=== PATIENT | male | born 1985 | race Caucasian/White ===

== ENCOUNTER 2018-10-03 13:18 | Emergency (ER) | payer OTHER, SELFPAY ==
[2018-10-03 13:23] VITALS: BP 138/69; PULSE 93; RESP 14; TEMP 36.6; O2SAT 97
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
[2018-10-03] MEDS: Omnipaque 350 MG/ML 100 ML BTL IJ (15:16)
[2018-10-03] MEDS: Normal Saline Flush 10 ML SYR IVP (15:16)
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
[2018-10-03 15:18] LABS: Abs Immature Grans 0.04 k/cumm (0.0-0.09); Absolute Basophil Count 0.03 k/cumm (0.0-0.2); Absolute Eosinophil Count 0.03 k/cumm (0.0-0.7); Absolute Lymphocyte Count 1.27 k/cumm (1.2-3.4); Absolute Monocyte Count 0.92 k/cumm (0.11-0.7); Absolute Neutrophil Count 5.89 k/cumm (1.2-6.7); Basophils % 0.4; Eosinophils % 0.4; HCT 42.2 % (40.0-50.0); HGB 14.2 g/dL (13.5-17.5); Immature Grans % 0.5; Lymphocytes % 15.5; Mean Corp. HGB Concentration 33.6 g/dL (32.0-36.0); Mean Corpuscular Hemoglobin 29.7 pg (27.0-33.0); Mean Corpuscular Volume 88.3 fL (80-95); Mean Platelet Volume 8.9 fL (8.0-11.0); Monocytes % 11.2; Platelet Count 261 x1000/uL (130-400); RBC 4.78 m/cumm (4.50-6.00); RBC Distribution Width 12.8 % (11.8-14.1); White Blood Cell Count 8.18 k/cumm (4.4-10.8)
[2018-10-03] MEDS: oxyCODONE 5 MG TAB PO (15:24)
[2018-10-03] MEDS: Lidocaine 5% Patch 1 PATCH (15:25)
[2018-10-03 15:26] LABS: ALT 14 U/L (12-78); AST 9 U/L (15-37); Albumin 3.6 g/dL (3.4-5.0); Alkaline Phosphatase 83 U/L (46-116); Anion Gap 6.3 mmol/L (3-11); BUN 17 mg/dL (7-18); Bilirubin, Total 0.5 mg/dL (0.2-1.0); CO2 32.7 mmol/L (21.0-32.0); CREATININE 0.99 mg/dL (0.70-1.30); Calcium 9.1 mg/dL (8.5-10.1); Chloride 96 mmol/L (98-107); Glucose 83 mg/dL (70-100); Potassium 4.5 mmol/L (3.5-5.1); Sodium 135 mmol/L (136-145); Total Protein 8.7 g/dL (6.4-8.2)
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
== END 2018-10-03 16:10 | disposition home or self-care (01) ==
PROVIDERS: Emergency Provider Student in an Organized Health Care Education/Training Program
DX: S20.212A Contusion of left front wall of thorax, initial encounter (principal); V43.52XA Car driver injured in collision with other type car in traffic accident, initial encounter
CPT/HCPCS: 36415; 80053; 99285; 71260; 85025; 99284; J3490; L3650

== ENCOUNTER 2018-10-18 13:04 | Emergency (ER) | payer OTHER, SELFPAY ==
[2018-10-18] VITALS (15 sets, daily range): BP systolic 110–129; BP diastolic 64–80; PULSE 104–135; RESP 11–21; TEMP 36.6; O2SAT 98–100
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
[2018-10-18] MEDS: Normal Saline 1,000 ML 1000 ML IV (16:25)
[2018-10-18 16:34] LABS: Abs Immature Grans 0.04 k/cumm (0.0-0.09); Absolute Basophil Count 0.03 k/cumm (0.0-0.2); Absolute Eosinophil Count 0.16 k/cumm (0.0-0.7); Absolute Neutrophil Count 9.13 k/cumm (1.2-6.7); Basophils % 0.2; Eosinophils % 1.2; HCT 36.6 % (40.0-50.0); HGB 12.3 g/dL (13.5-17.5); Immature Grans % 0.3; Lymphocytes % 20.7; Mean Corp. HGB Concentration 33.6 g/dL (32.0-36.0); Mean Corpuscular Hemoglobin 29.8 pg (27.0-33.0); Mean Corpuscular Volume 88.6 fL (80-95); Mean Platelet Volume 8.5 fL (8.0-11.0); Neutrophils % 68.6; Platelet Count 461 x1000/uL (130-400); RBC 4.13 m/cumm (4.50-6.00); RBC Distribution Width 12.4 % (11.8-14.1); White Blood Cell Count 13.31 k/cumm (4.4-10.8)
[2018-10-18 16:39] LABS: Absolute Lymphocyte Count 2.76 k/cumm (1.2-3.4)
[2018-10-18 16:47] LABS: ALT 12 U/L (12-78); AST 11 U/L (15-37); Albumin 3.3 g/dL (3.4-5.0); Alkaline Phosphatase 85 U/L (46-116); Anion Gap 4.5 mmol/L (3-11); BUN 19 mg/dL (7-18); Bilirubin, Total 0.3 mg/dL (0.2-1.0); CO2 33.5 mmol/L (21.0-32.0); CREATININE 0.83 mg/dL (0.70-1.30); Calcium 9.2 mg/dL (8.5-10.1); Chloride 99 mmol/L (98-107); Glucose 88 mg/dL (70-100); Potassium 4.6 mmol/L (3.5-5.1); Sodium 137 mmol/L (136-145); Total Protein 7.9 g/dL (6.4-8.2)
[2018-10-18] MEDS: Ketorolac 30 MG/ML VIAL (16:49)
== END 2018-10-18 18:51 | disposition short-term general hospital (02) ==
PROVIDERS: Emergency Provider Student in an Organized Health Care Education/Training Program; PCP Nurse Practitioner Family
DX: J98.2 Interstitial emphysema (principal); S22.21XA Fracture of manubrium, initial encounter for closed fracture; V43.52XA Car driver injured in collision with other type car in traffic accident, initial encounter
CPT/HCPCS: 71250; 80053; 96361; 96374; 99284; 85025; J1885

== ENCOUNTER 2018-10-23 03:26 | Emergency (ER) | payer MEDICAID, SELFPAY ==
[2018-10-23] VITALS (7 sets, daily range): BP systolic 148–152; BP diastolic 88–101; PULSE 77–97; RESP 20–45; TEMP 37.3; O2SAT 97
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
[2018-10-23] MEDS: LORazepam 2 MG/ML VIAL 0.5 MG IVP (04:10)
[2018-10-23] MEDS: Ketorolac 30 MG/ML VIAL IVP (04:11)
[2018-10-23 04:13] LABS: Abs Immature Grans 0.04 k/cumm (0.0-0.09); Absolute Basophil Count 0.02 k/cumm (0.0-0.2); Absolute Eosinophil Count 0.29 k/cumm (0.0-0.7); Absolute Lymphocyte Count 1.68 k/cumm (1.2-3.4); Absolute Monocyte Count 0.57 k/cumm (0.11-0.7); Absolute Neutrophil Count 4.89 k/cumm (1.2-6.7); Basophils % 0.3; Eosinophils % 3.9; HCT 42.8 % (40.0-50.0); HGB 14.6 g/dL (13.5-17.5); Immature Grans % 0.5; Lymphocytes % 22.4; Mean Corp. HGB Concentration 34.1 g/dL (32.0-36.0); Mean Corpuscular Hemoglobin 29.5 pg (27.0-33.0); Mean Corpuscular Volume 86.5 fL (80-95); Mean Platelet Volume 7.9 fL (8.0-11.0); Monocytes % 7.6; Neutrophils % 65.3; Platelet Count 529 x1000/uL (130-400); RBC 4.95 m/cumm (4.50-6.00); RBC Distribution Width 12.6 % (11.8-14.1); White Blood Cell Count 7.49 k/cumm (4.4-10.8)
[2018-10-23] MEDS: Normal Saline Flush 10 ML SYR IVP ×2 (04:13→04:19)
[2018-10-23] MEDS: Ondansetron 4 MG/2 ML VIAL IVP (04:18)
--- NOTE | 2018-10-23 04:30 | DI.CT_ITS ---
SYMPTOM/DIAGNOSIS: PLEURITIC LT SIDED CHEST PAIN PE CHEST CTA: CT angiography was performed with multi slice acquisition and multi planar and 3D reconstruction. CT scan of the chest was performed according to the pulmonary embolus protocol. There is no evidence of a pulmonary embolus. The thoracic aorta is intact. No evidence of aneurysm or dissection. Heart size is within normal limits. No significant pericardial effusion is seen. No evidence of right ventricular dysfunction is present. No thoracic adenopathy is identified. No effusion or pneumothorax is present. There is again seen a linear infiltrate in the left lung apex which may represent scarring or atelectasis. Follow up as clinically appropriate. No acute infiltrates are seen. The tracheobronchial tree is unremarkable. No acute fracture is present. There is an open wound over the medial aspect of the left clavicle. Upper abdominal images show findings suggestive of an enlarged spleen but are otherwise unremarkable. IMPRESSION: 1. No evidence of a pulmonary embolus, thoracic aortic aneurysm or dissection. 2. Linear infiltrate in the left lung apex which appears stable dating back to the older CT scan from 10/03/18. This may represent atelectasis, scarring or pneumonia. 3. Open wound in the soft tissues overlying the medial left clavicle.
[2018-10-23 04:33] LABS: Magnesium 1.7 mg/dL (1.8-2.4)
[2018-10-23 04:34] LABS: Troponin I < 0.02 ng/mL (0.00-0.06)
[2018-10-23] MEDS: Omnipaque 350 MG/ML 100 ML BTL IJ (04:35)
[2018-10-23 04:47] LABS: PTT Activated 28.5 sec (21.0-31.4); Prothrombin Time 11.5 sec (9.3-11.0)
[2018-10-23 04:55] LABS: INR 1.1 (0.9-1.1)
[2018-10-23] MEDS: Normal Saline 1,000 ML 150 ML IV (04:59)
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
[2018-10-23] MEDS: MORPHine 10 MG/ML VIAL 4 MG IVP (05:31)
[2018-10-23 06:00] LABS: Anion Gap 11.9 mmol/L (3-11); BUN 16 mg/dL (7-18); CO2 29.1 mmol/L (21.0-32.0); CREATININE 1.06 mg/dL (0.70-1.30); Calcium 9.9 mg/dL (8.5-10.1); Chloride 97 mmol/L (98-107); Glucose 127 mg/dL (70-100); Potassium 3.5 mmol/L (3.5-5.1); Sodium 138 mmol/L (136-145)
[2018-10-23] MEDS: Lidocaine 5% Patch 1 PATCH TP (07:50)
[2018-10-23 08:01] LABS: Troponin I < 0.02 ng/mL (0.00-0.06)
== END 2018-10-23 07:52 | disposition home or self-care (01) ==
PROVIDERS: Emergency Provider Emergency Medicine; PCP Nurse Practitioner Family
DX: R07.89 Other chest pain (principal); R06.02 Shortness of breath; R11.2 Nausea with vomiting, unspecified; R45.1 Restlessness and agitation
CPT/HCPCS: 36415; 71275; 80048; 93005; 96361; 96365; 96375; 99285; 83735; 84484; 85025; 85610; 85730; 93010; J1885; J2060; J2270; J2405; J3490

== ENCOUNTER 2018-12-02 12:58 | Outpatient (CLI) | payer MEDICAID, SELFPAY ==
[2018-12-02 15:19] LABS: Abs Immature Grans 0.01 k/cumm (0.0-0.09); Absolute Basophil Count 0.04 k/cumm (0.0-0.2); Absolute Lymphocyte Count 1.56 k/cumm (1.2-3.4); Absolute Monocyte Count 0.51 k/cumm (0.11-0.7); Absolute Neutrophil Count 4.44 k/cumm (1.2-6.7); Basophils % 0.6; HCT 41.8 % (40.0-50.0); HGB 14.3 g/dL (13.5-17.5); Immature Grans % 0.1; Lymphocytes % 23.1; Mean Corp. HGB Concentration 34.2 g/dL (32.0-36.0); Mean Corpuscular Hemoglobin 30.2 pg (27.0-33.0); Mean Corpuscular Volume 88.4 fL (80-95); Mean Platelet Volume 8.9 fL (8.0-11.0); Monocytes % 7.5; Neutrophils % 65.7; Platelet Count 287 x1000/uL (130-400); RBC 4.73 m/cumm (4.50-6.00); RBC Distribution Width 13.6 % (11.8-14.1); White Blood Cell Count 6.76 k/cumm (4.4-10.8)
[2018-12-02 17:23] LABS: ALT 43 U/L (12-78); AST 26 U/L (15-37); Albumin 3.8 g/dL (3.4-5.0); Alkaline Phosphatase 100 U/L (46-116); Anion Gap 8.5 mmol/L (3-11); BUN 14 mg/dL (7-18); Bilirubin, Total 0.3 mg/dL (0.2-1.0); CO2 27.5 mmol/L (21.0-32.0); CREATININE 0.93 mg/dL (0.70-1.30); Calcium 8.6 mg/dL (8.5-10.1); Chloride 104 mmol/L (98-107); Glucose 150 mg/dL (70-100); Potassium 4.3 mmol/L (3.5-5.1); Sodium 140 mmol/L (136-145); Total Protein 7.4 g/dL (6.4-8.2)
== END 2018-12-02 13:18 ==
PROVIDERS: PCP Nurse Practitioner Family; Visit Provider Internal Medicine Infectious Disease
DX: M86.9 Osteomyelitis, unspecified (principal)
CPT/HCPCS: 36415; 80053; 85025; 86140

== ENCOUNTER 2020-03-29 10:24 | Emergency (ER) | payer MEDICAID, SELFPAY ==
[2020-03-29 10:27] VITALS: BP 121/72; PULSE 92; RESP 16; TEMP 36.6; O2SAT 97
--- NOTE | 2020-03-29 10:40 | ED.GENADUL_ITS ---
Discharge Plan Disposition Patient Disposition: HOME Condition: Stable Discharge Details Chief Complaint: Abd Prob Clinical Impression: Inguinal hernia Primary Care Provider: Juliette Olivares ED Provider: Juanpablo Lassiter Home Meds and New Rx's Prescriptions: New sulfamethoxazole-trimethoprim [Bactrim DS] 800-160 mg tablet 1 tab PO BID Qty: 14 RF: 0 Discharge Instructions Instructions: Inguinal Hernia (ED) Additional Instructions: you should be contacted to set up a time to meet with general surgery if you have severe worsening pain or persistent vomit return to the emergency department Stand Alone Forms: Work Release Medical Decision Making 34 yo male with no chronic medical problems comes in with 2 issues. The primary issues is a week or so of intermittent discomfort in the right groin and bulge that comes and goes and notices it with heavy lifting. Denies vomit and has no pain now. He does have what feels like a small reducible inguinal canal hernia on exam without tenderness, erythema or warmth and has no testicle pain or swelling, no findings to suggest strangulated or incarcerated hernia and no findings to suggest testicular torsion. Will refer to general surgery for eval and advised if worsening pain or vomit return to the emergency department. He aso has had chronic issues with sweat pimples and has what appears to be folliculitis patches on his forearms and knees. HE has papules and pustules on an erythematous base in the forearms and anterior knees, no fluctuance or drainage on exam or severe pain. Will tx with bactrim and advised to f/u with pcp if not improving in a week Differential Diagnosis Differential Diagnosis: inguinal hernia, folliculitis, strain HPI General Mode of arrival: ambulatory . Date/Time Provider Initiated Documentation: 03/29/20 10:26 . Limitations to Documentation: no limitations . Information obtained by: patient . History of Present Illness 34 year old M presents to the emergency department with the chief complaint of right groin pain, described as moderate, and it has been intermittent. No relieving factors improve symptom(s), No exacerbating factors reported . Related Data Home Medications Medication Instructions Recorded Confirmed sulfamethoxazole-trimethoprim 1 tab PO BID #14 tab 03/29/20 [Bactrim DS] Previous Rx's Medication Instructions Recorded sulfamethoxazole-trimethoprim 1 tab PO BID #14 tab 03/29/20 [Bactrim DS] Allergies Allergy/AdvReac Type Severity Reaction Status Date / Time No Known Allergies Allergy Unverified 03/29/20 10:32 General Stated Complaint: Abd Prob TRACIE: 3 Review of Systems All systems reviewed & are unremarkable except as noted in HPI and below Constitutional Constitutional: Denies chills, Denies fever(s) and Denies weakness Cardiovascular Cardiovascular: Denies chest pain and Denies dyspnea Respiratory Respiratory: Denies cough and Denies dyspnea Gastrointestinal Gastrointestinal: Denies nausea and Denies vomiting Musculoskeletal Musculoskeletal: Denies joint swelling Neurologic Neurologic: Denies weakness [facility] Medical History (Updated 03/29/20 @ 10:40 by Juanpablo Lassiter MD) Chest wall abscess (Acute) Surgical History S/P bronchoscopy (Resolved) Social History Smoking/Tobacco Use Status: Former Tobacco Use Drug use: Never Do you feel safe at home: Yes Do you feel safe in your relationship?: Yes Exam Const General: no acute distress Orientation: alert HENOR Head: normal to inspection Ears: external ears normal General nose exam: external nose normal Mouth: moist mucous membranes Eyes General: appearance normal, both eyes and all related structures Neck Neck: normal visual inspection Resp Effort & Inspection: normal respiratory effort and able to speak in complete sentences Cardio Rate: regular rate GI Inspection: no abdominal wall ecchymosis Skin General skin exam: elasticity normal Neuro General: patient alert and patient oriented x3 Extrem General: normal to inspection Psych Mental Status: mental status grossly normal Course Vital Signs Vital signs: Vital Signs Temperature 36.6 C 03/29/20 10:27 Pulse 92 H 03/29/20 10:27 Respiratory Rate 16 03/29/20 10:27 Blood Pressure 121/72 03/29/20 10:27 Pulse Oximetry 97 03/29/20 10:27 Temperature 36.6 C 03/29/20 10:27 Temperature Source Skin 03/29/20 10:27 Pulse 92 H 03/29/20 10:27 Respiratory Rate 16 03/29/20 10:27 Respiratory Effort 03/29/20 10:34 Blood Pressure 121/72 03/29/20 10:27 Blood Pressure Position Sitting 03/29/20 10:27 Pulse Oximetry 97 03/29/20 10:27 Oxygen Delivery Method Room Air 03/29/20 10:27 Oxygen Flow Rate 0 08/13/20 10:27 Pain Level 6 03/29/20 10:27 Comment 03/29/20 10:27
--- NOTE | 2020-03-29 10:45 | NUR.NOTE ---
Nursing Note: Referral faxed to [facility] for follow up. Geni Motta
== END 2020-03-29 10:52 | disposition home or self-care (01) ==
PROVIDERS: Emergency Provider Emergency Medicine; PCP Nurse Practitioner Family
DX: K40.90 Unilateral inguinal hernia, without obstruction or gangrene, not specified as recurrent (principal); L73.8 Other specified follicular disorders
CPT/HCPCS: 99283

== ENCOUNTER 2020-04-13 03:50 | Outpatient (CLI) | payer MEDICAID, SELFPAY ==
[2020-04-15 02:33] LABS: COVID-19 RT-PCR Result NEGATIVE (Negative)
== END 2020-04-13 04:10 ==
PROVIDERS: PCP Nurse Practitioner Family; Visit Provider Surgery
DX: Z11.59 Encounter for screening for other viral diseases (principal); Z01.818 Encounter for other preprocedural examination
CPT/HCPCS: U0003

== ENCOUNTER 2020-04-16 07:53 | Day surgery (SDC) | payer MEDICAID, SELFPAY ==
[2020-04-16] VITALS (9 sets, daily range): BP systolic 125–158; BP diastolic 66–94; PULSE 79–100; RESP 10–78; TEMP 36–36.6; O2SAT 96–100
[2020-04-16] MEDS: Gabapentin 300 MG CAP PO (08:36)
[2020-04-16] MEDS: Acetaminophen 500 MG TAB 1000 MG PO (08:36)
[2020-04-16] MEDS: Lactated Ringers 1,000 ML 80 ML IV (09:26)
[2020-04-16] MEDS: ceFAZolin 2 GM/50 ML BAG IVPB (09:33)
[2020-04-16] MEDS: Bupivacaine 0.25% Pres-Free 30 ML VIAL (09:45)
[2020-04-16] MEDS: Bupivacaine LIPOSOME/PF 133 MG/10 ML VIAL IJ (09:45)
--- NOTE | 2020-04-16 12:21 | W.PM.OP ---
Date of service: 04/16/20 Time of Service: 12:21 Operative Note Operative Note DATE OF PROCEDURE: 04/16/20 PRE-OP DIAGNOSIS: right inguinal hernia POST-OP DIAGNOSIS: same PROCEDURE: open repair w/ mesh SURGEON: Gina Voss DESIGN TECHNOLOGY TEACHER: Jojo Solorzano ANESTHESIA: MAC, regional and local ESTIMATED BLOOD LOSS: 5 PATHOLOGY: none sent COMPLICATIONS: None Patient was transported to: PACU Patient's condition: stable Implants: see RN notes Procedure Description: INDICATIONS: The pt is here today for surgery regarding symptomatic right inguinal hernia that has failed outpatient conservative medical management and he is here today for repair. Informed consent was obtained, explaining risks and benefits of the procedure including but not limited to bleeding, infection, pneumonia, blood clots, chronic pain, chronic numbness, damage to testicle resulting in removal, recurrence of hernia, reaction to Mesh necessitating removal, and other unforetold complications, and complications of anesthesia-which were addressed by the THEATRICAL SCENIC DESIGNER. The patient is marked in preOp prior to the procedure DESCRIPTION OF PROCEDURE: The pt is then brought to the operative room suite. Anesthesia was administered per the Department of Anesthesia. The patient was prepped and draped in the usual sterile fashion using ChloraPrep scrub solution. Pause for the cause was done. He did receive preop IV antibiotics, and 30 mL of .25% Marcaine w/ epinephrine was used for local anesthetization. A #12 blade was used to make an incision over the external ring. Electrocautery used to provide hemostasis and dissect down to the fascia. The fascia was pretty much obliterated and there was nothing to open. The cord is elevated. The nerve was not identified. There medium is a cord lipomas. Electro-cautery is used to provide hemostasis. A [place] drain was placed around the cord to assist in mobilization. The cord was explored. There was is medium- sized hernia sac on the cord. There is no direct hernia pushing through the floor. The hernia sac is dissected off the cord using a combination of blunt dissection and electrocautery. Electrocautery is used to provide hemostasis. There are no contents within the hernia sac. The hernia sac is than inverted and returned to the abdominal cavity. A large size plug is than inserted into the defect through the internal ring, and over sewn to tighten up the ring with 2-0 vicryl. The cord structures are still able to freely move through the ring itself. The patch was then placed onto the floor, and using 2-0 Vicryl, sewn into the pubic tubercle and the shelving portions of the inguinal ligament, in the standard Lichenstein fashion. The tails of the mesh are brought around the cord, sewn together w/ 2-0 Vicryl, and tucked under the external oblique. The wound was copiously irrigated. There was no bleeding noted. The drain was removed. All structures are returned to normal anatomical position. The nerve is not sewn into the mesh, nor caught up in any sutures. The external oblique is re-approximated using 2-0 vicryl in a running fashion. Deep tissue was approximated with 3-0 Vicryl in a running fashion, and skin was approximated with 4-0 Monocryl in a running subcuticular fashion. Skin glue and sterile dressings are applied. The patient tolerated the procedure without complications to recovery in stable condition. GINA VOSS, DO
--- NOTE | 2020-04-16 12:25 | W.PM.DSUDISC ---
Discharge Plan Disposition Patient Disposition: HOME Condition: Good Discharge Details Reason For Visit: right inguinal hernia repair Attending Provider: Gina Khan Primary Care Provider: Juliette Olivares Home Meds and New Rx's Prescriptions: New oxycodone 5 mg tablet 5 mg PO Q6H PRN (Reason: pain) Qty: 7 RF: 0 cyclobenzaprine 5 mg tablet 5 mg PO TID PRN (Reason: pain) Qty: 30 RF: 3 ibuprofen 800 mg tablet 800 mg PO Q6H PRN (Reason: pain) Qty: 60 RF: 3 Discharge Instructions Additional Instructions: Dr. Khan HERNIA REPAIR ? POSTOPERATIVE INSTRUCTIONS Patients who have this type of surgery can usually be expected to return to work within two weeks and have minimal amounts of discomfort. ? ACTIVITY: The day of surgery should be spent resting. However, you can be up for short periods of time, I.E., going to the bathroom or kitchen. Avoid lifting or straining. On the day following surgery, you can be up and about as desired. ? LIFTING: Restrict your lifting to no more than five (5) pounds for the first week following surgery. For the second week after surgery, don?t lift more than ten pounds. We will decide when you are done with restrictions and when you can return to work, at your follow-up appointment. ? DIET: There are no dietary restrictions following surgery. However, you may want to start with small amounts of liquids to avoid nausea the day of surgery. ? INCISION CARE: You will notice purple skin glue closing the incision. Do not peel this off- it will wear off on its own. After 24 hours you may shower. The dressing may be replaced for comfort, but is not necessary. An ice bag may be applied to the incision for 72 hours following surgery. ? SIGNS OF INFECTION: It is not unusual to have some black and blue discoloration of the skin around the incision, but also scrotum and penis. It will slowly disappear. If you have any increased redness, drainage, fever (above 100 degrees), please contact your doctor for an examination. ? DISCOMFORT: You may expect to have some mild discomfort at the incision sight. If severe pain develops you should contact your doctor for further instructions. ? URINATION: Patients who have surgery occasionally have problems urinating. If you experience problems and are not able to urinate within 6 hours following your surgery, please call your doctor immediately or go to your nearest Emergency Room for evaluation. ? DRIVING: NO driving for five (5) days after surgery or if you are still taking narcotic pain medication. ? MEDICATIONS: Alternate Tylenol 1000mg by mouth every 8hours and Ibuprofen 600mg every 6hours. Take the Tylenol and ibuprofen continuously for the first 72hrs- not just when you have pain. Use the tramadol for breakthrough pain. Use ICE! Twenty minutes on, and then off, continuously for the first 72hours. If you are taking narcotic pain medication, follow the instructions on the label and do not drive. Pain medications can make you very constipated. Make sure you are moving your bowels daily. If not, take Miralax, milk of magnesia or magnesium citrate. ? REPORT: Unusual swelling, severe pain, unresolved nausea, signs of infection, or difficulty in urination to your surgeon. Follow up in clinic with Dr. Khan in 1-2 weeks. [phone] Stand Alone Forms: DSU Post op Instructions, Lissette Munson (DSU) Activity:: see above Remove Dressings/Wound Care:: 24 hours Shower/Bathe:: 24 hours Diet:: As Tolerated DS: Diagnosis Discharge Diagnosis (1) Inguinal hernia: Status: Acute
[2020-04-16] MEDS: Cyclobenzaprine 10 MG TAB PO (12:46)
== END 2020-04-16 13:45 | disposition home or self-care (01) ==
PROVIDERS: PCP Nurse Practitioner Family; Visit Provider Surgery
PROC: (CPT 49505; principal; 2020-04-16 08:30)
DX: K40.90 Unilateral inguinal hernia, without obstruction or gangrene, not specified as recurrent (principal); G89.18 Other acute postprocedural pain
CPT/HCPCS: 49505; 76942; C1781; J0690; J1100; J1885; J2250; J2310; J2405; J2704

== ENCOUNTER 2022-12-12 09:18 | Outpatient (CLI) | payer MEDICAID, SELFPAY ==
--- NOTE | 2022-12-12 | DI.RAD_ITS ---
Exam(s) XR SHOULDER RT COMPLETE 2+V EXAM: XR SHOULDER RT COMPLETE 2+V CLINICAL HISTORY: RT SHOULDER PAIN, M25.511,? CALCIFIC TENDINITIS,? BONY ABNORMALITY. TECHNIQUE: 2D digital imaging was performed. Five views. COMPARISON: No exams were available for comparison FINDINGS: BONES: No acute fracture is present. No bony destructive lesion is seen. JOINTS: No dislocation present. SOFT TISSUE: Normal. IMPRESSION: Unremarkable radiographs of the right shoulder. No evidence of calcific tendinitis. No bony abnorm ality. DATA REPOSITORY: RADIATION DOSE DELIVERED:
== END 2022-12-12 09:38 ==
LOC: DI 09:23
PROVIDERS: PCP Nurse Practitioner Family; Visit Provider Physician Assistant Medical
DX: M25.511 Pain in right shoulder (principal)
CPT/HCPCS: 73030

== ENCOUNTER → 2023-07-22 15:46 | Outpatient (CLI) | payer MEDICAID, SELFPAY ==
--- NOTE | 2023-07-22 | DI.RAD_ITS ---
Exam(s) XR CHEST 2V PA LATERAL EXAM: XR CHEST 2V PA LATERAL CLINICAL HISTORY: COUGH, R05.9 TECHNIQUE: 2D digital imaging was performed. COMPARISON: CR CHEST 2 VIEWS PA,LAT from 09/25/[address] chest PE CTA from 10/23/2018 FINDINGS: HEART: Normal size. Aorta: Not dilated. PULMONARY VASCULATURE: Normal. LUNGS: Patchy densities noted in the left upper lobe. Question of faint densities in the right upper lobe. PLEURAL SPACE: No pleural effusion or pneumothorax. BONE:Unremarkable for age. Soft tissues: Unremarkable. IMPRESSION: Left upper lobe infiltrate. Question additional right upper lobe infiltrate. DATA REPOSITORY: RADIATION DOSE DELIVERED:
== END ==
PROVIDERS: PCP Nurse Practitioner Family; Visit Provider Physician Assistant Medical
DX: R05.9 Cough, unspecified (principal); R91.8 Other nonspecific abnormal finding of lung field
CPT/HCPCS: 71046

== ENCOUNTER 2023-10-08 04:37 | Emergency (ER) | payer MEDICAID, SELFPAY ==
[2023-10-08] VITALS (12 sets, daily range): BP systolic 114–148; BP diastolic 61–82; PULSE 92–116; RESP 14–21; TEMP 38.3; O2SAT 87–98
--- NOTE | 2023-10-08 04:30 | RT.EKG_ITS ---
APPROVED REPORT Exam: Resting ECG Reason for Exam: chest pain Patient Location: E HR:108 bpm ECG Measurements Heart Rate 108 AXIS DE 138 P 34 QRSd 85 QRS 71 QT 311 T 36 QTc 417 Conclusion Sinus tachycardia...rate> [address] segment or T wave abnormalities to suggest occlusive HI
--- NOTE | 2023-10-08 04:45 | DI.RAD_ITS ---
Exam(s) XR CHEST 2V PA LATERAL EXAM: XR CHEST 2V PA LATERAL CLINICAL HISTORY: cough, sob, hypoxia TECHNIQUE: 2D digital imaging was performed of the chest. Two images were obtained. PA and lateral views were obtained. COMPARISON: CR XR CHEST 2V PA LATERAL from 07/22/2023 FINDINGS: MEDIASTINUM: Normal. HEART: Normal. PULMONARY VASCULATURE: Normal. LUNGS: There is a nodular opacity projected in the right upper lobe which may represent a summation o f shadows at the costochondral junction. Pulmonary nodule cannot be excluded. PLEURAL SPACE: No pleural effusion or pneumothorax. BONE:Within normal limits for the patient's age. OTHER FINDINGS:Normal. IMPRESSION: Question of a right upper lobe pulmonary nodule versus summation of shadows at the costochondral junc tion. A CT scan of the chest is recommended for further evaluation. DATA REPOSITORY: RADIATION DOSE DELIVERED:
[2023-10-08] MEDS: Albuterol HFA 8 GM 60 PUFF INH IH (04:56)
[2023-10-08] MEDS: Normal Saline 1,000 ML 1000 ML IV (04:57)
[2023-10-08] MEDS: Acetaminophen 500 MG TAB 1000 MG PO (05:05)
[2023-10-08] MEDS: Albuterol 2.5 MG/3 ML INH SOLN VIAL UPD (05:06)
[2023-10-08] MEDS: PIPERACILLIN/TAZO 4.5 GM in Normal Saline 100 ML IVPB (05:23)
[2023-10-08 05:26] LABS: Abs Immature Grans 0.03 10^3/uL (0.0-0.06); Absolute Basophil Count 0.05 10^3/uL (0.0-0.2); Absolute Eosinophil Count 0.54 10^3/uL (0.0-0.7); Absolute Lymphocyte Count 1.44 10^3/uL (1.2-3.4); Absolute Monocyte Count 0.73 10^3/uL (0.1-0.8); Absolute Neutrophil Count 6.09 10^3/uL (1.2-6.7); Basophils % 0.6; Eosinophils % 6.1; HCT 37.7 % (40.0-50.0); HGB 12.6 g/dL (13.5-17.5); Immature Grans % 0.3; Lymphocytes % 16.2; MCH 28.3 pg (27.0-33.0); MCHC 33.4 % (32.0-36.0); MCV 85 fL (80-95); Monocytes % 8.2; Neutrophils % 68.6; RBC 4.45 10^6/uL (4.36-5.78); RDW 12.9 % (11.8-14.1); RDW-SD 39.8 fL; WBC 8.88 10^3/uL (4.4-10.8)
[2023-10-08 05:29] LABS: Lactate 0.8 mmol/L (0.6-1.4)
[2023-10-08 05:47] LABS: ALT 35 U/L (16-63); AST 26 U/L (15-37); Albumin 3.2 g/dL (3.4-5.0); Alkaline Phosphatase 74 U/L (46-116); BUN 23 mg/dL (7-18); Bilirubin, Total 0.7 mg/dL (0.2-1.0); Calcium 8.7 mg/dL (8.5-10.1); Chloride 99 mmol/L (98-107); Estimated GFR 100.03 (mL/min/1.73m2); Glucose 119 mg/dL (74-106); Potassium 4.4 mmol/L (3.5-5.1); Sodium 135 mmol/L (136-145); Total Protein 8.5 g/dL (6.4-8.2)
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
[2023-10-08] MEDS: LINEZOLID 600 MG/300 ML BAG 300 MG IVPB (06:13)
[2023-10-08 06:14] LABS: COVID-19 PCR Negative (Negative); Influenza A PCR Negative (Negative); Influenza B PCR Negative (Negative); RSV PCR Negative (Negative)
[2023-10-08 06:15] LABS: Magnesium 1.8 mg/dL (1.8-2.4); Troponin I < 50 ng/L (< or =60)
[2023-10-08 06:16] LABS: Source Nasopharynx
[2023-10-08 06:20] LABS: D-Dimer 762 ng/mlFEU (<500); Procalcitonin 0.3 ng/mL
--- NOTE | 2023-10-08 06:30 | NUR.NOTE ---
pts iv fell out and pt is refusing to get another iv, lenzolid abx was not finished
--- NOTE | 2023-10-08 06:44 | DI.VRAD_ITS ---
PROCEDURE INFORMATION: Exam: XR Chest Exam date and time: 10/08/2023 5:43 AM Age: 38 years old Clinical indication: Cough and shortness of breath and other: Hypoxia; Additional info: Cough, SOB, hypoxia TECHNIQUE: Imaging protocol: Radiologic exam of the chest. Views: 2 views. COMPARISON: CR XR CHEST 2V PA LATERAL 07/22/2023 3:55 PM FINDINGS: Lungs: Nodular opacity appreciated over the right upper lobe. Pleural spaces: Unremarkable. No pleural effusion. No pneumothorax. Heart/Mediastinum: Unremarkable. No cardiomegaly. Bones/joints: Unremarkable. IMPRESSION: Nodular opacity appreciated over the right upper lobe, may represent vessel, lung nodule, prominent costochondral junction mineralization. CT for further characterization is recommended. Dictated and Authenticated by: Elmer Ha MD. Ordering:SACHA Camacho MD
== END 2023-10-08 06:43 | disposition left against medical advice (07) ==
PROVIDERS: Emergency Provider Student in an Organized Health Care Education/Training Program; PCP Nurse Practitioner Family
DX: J18.9 Pneumonia, unspecified organism (principal); J96.01 Acute respiratory failure with hypoxia; F17.290 Nicotine dependence, other tobacco product, uncomplicated; Z11.52 Encounter for screening for COVID-19
CPT/HCPCS: 36415; 80053; 84145; 87040; 87637; 93005; 96365; 96368; 99284; 71046; 81003; 83605; 83735; 84484; 85025; 85379; 93010; J2020; J2543; J7613